=== PATIENT | male | born 1940 | race Caucasian/White ===

== ENCOUNTER 2017-12-26 17:59 | Emergency (ER) | payer MEDICARE, BC, OTHER ==
[~2017-12-26] VITALS: Ht 185.4 cm; Wt 76.2 kg
[~2017-12-26 17:59] MED LIST: AUGMENTIN 875875 MG PO; CALCIUM 500 +1 EAC5 PO; CASODEX 50 MG T50 M1 PO; EC-NAPROSYN375 MG PO; ENTOCORT EC 3 MG3 MG PO; FINASTERIDE5 MG PO; FLOMAX0.4 MG PO; FOLIC ACID1 MG PO; KLOR-CON 1010 MEQ PO; LASIX 20 MG TAB20 MG PO; LOPRESSOR25 PO; NAPROXEN375 M1 PO; PROTONIX40 M1 PO; SULFASALAZINE500 M5 PO; VITAMIN D1000 UNI1 PO
[2017-12-26 18:13] VITALS: BP 164/96
[2017-12-26] MEDS ORDERED: PREDNISONE 20 M20 M1 PO (18:26)
== END 2017-12-26 18:40 | disposition home or self-care (01) ==
LOC: M.ERS 17:59
DX: L25.9 Unspecified contact dermatitis, unspecified cause (principal); E78.00 Pure hypercholesterolemia, unspecified; K21.9 Gastro-esophageal reflux disease without esophagitis

== ENCOUNTER 2019-08-25 13:53 | Inpatient (IN) | payer OTHER ==
[~2019-08-25] VITALS: Ht 185.4 cm; Wt 74.4 kg
--- NOTE | ~2019-08-25 | CON ---
[address] [address] CONSULTATION Name: YUKODAHIANA T Room: [address] IN M.R.#: [id number] Admission: 08/25/19 Attend Phys: Tyesha Treadwell MD Discharge: Date of : 40 Report #: [id number] THIS REPORT FOR: //name// cc: [facility] physician unknown [facility] [address] physician unknown ~ THIS REPORT FOR: //name// CC: JOHN unknown Tyesha Treadwell [facility] DICTATED BY: Hiwot RODAS DATE OF SERVICE: 08/26/2019 Please note at the time of this dictation, the patient was seen and physically examined by myself. REASON FOR CONSULTATION: Constipation, abdominal pain and abnormal CT. HISTORY OF PRESENT ILLNESS: This is a 78-year-old male who presented to the Emergency Room with severe lower abdominal discomfort. He states he was having some rectal pain and not had a bowel movement in greater than 3 days. The patient does have a longstanding history of ulcerative colitis, which he takes sulfasalazine for and he is followed at the [facility]. Apparently, the patient 2 years ago, had a very large polyp that was noted. Part of it was only able to be removed. He had a colon last year. The rest of it was removed and he is to have a repeat colonoscopy on 08/31 regarding this and his colitis. The patient states routinely he does not take anything for his bowels at home. However, since he got here, he had numerous agents in the Emergency Room and has been placed on MiraLax. He states he has been going significantly since he got here to the point this morning last time he went, his bowels are almost liquid and he refused his MiraLax this morning. He states he is feeling much better. His appetite is good and he has no complaints noted at this time. ALLERGIES: No known drug allergies. MEDICATIONS FROM HOME: Protonix, Flomax, Casodex, sulfasalazine, folic acid, vitamin D, and Os-Caleb. PAST MEDICAL HISTORY: History of colon polyps. He had some gastritis back in 2014. BPH, high cholesterol, acid reflux with prostate cancer with metastasis. PAST SURGICAL HISTORY: Right hip replacement. FAMILY HISTORY: [place] [address] CONSULTATION Name: DAHIANA HUNTLEY Room: [address] IN [facility].#: [id number] Admission: 08/25/19 Attend Phys: Tyesha Treadwell MD Discharge: Date of : 40 Report #: [id number] SOCIAL HISTORY: Lives at home with his . Denies any alcohol, tobacco or illegal drug use. REVIEW OF SYSTEMS: Twelve-point review of systems is essentially negative except what is mentioned in the HPI. PHYSICAL EXAMINATION: VITAL SIGNS: Temperature 37.7, pulse 98, respirations are 18, blood pressure 123/74. HEART: Regular rate and rhythm. LUNGS: Diminished, but clear. ABDOMEN: Soft, positive bowel sounds in all 4 quadrants with no masses or tenderness noted. LABORATORY DATA: Hemoglobin is 11.1, white count 6.7, platelets 229. GFR is 59. His LFTs are normal. It is also noted that he has UTI. CT shows some debris in his gallbladder, questionable polyp. He has got a large amount of stool noted diffusely throughout his entire colon, with some thickening in the sigmoid area is noted. IMPRESSION: 1. Constipation., resolved. 2. Abnormal CT, mainly in the sigmoid area. 3. History of ulcerative colitis, cleared back in the 1960s. 4. Personal history of prostate cancer with mets. PLAN: 1. The patient's bowels are moving regularly and are now very loose to watery. 2. Continue Cipro, Flagyl IV for at least a day and then home on oral antibiotics. 3. The patient already has a colonoscopy scheduled with the [place] whom follows [place] on 09/01/2019. 4. No plans for any endoscopy study at this time. The patient is wanting to go home. Thank you for allowing us to participate in this patient's care. Please do not hesitate to call with any questions in regard to this consult. By: [id number] Beck MD /hermes
[~2019-08-25 13:53] MED LIST changes: +PREDNISONE 20 M20 M1 PO
[2019-08-25 14:21] LABS: ABSOLUTE EOSINOPHILS 0.1 thou/uL (0.0-0.7); ABSOLUTE LYMPHOCYTES 1.1 thou/uL (0.8-5.3); ABSOLUTE MONOCYTES 0.4 thou/uL (0.0-1.2); ABSOLUTE NEUTROPHILS 3.7 thou/uL (1.6-8.1); BASOPHILS 0.6 %; EOSINOPHILS 2.2 %; HEMOGLOBIN 11.8 gm/dL (14.0-18.0); MCH 35.5 pg (26.0-34.0); MCHC 34.8 g/dL (28.0-37.0); MONOCYTES 7.6 %; MPV 6.9 fl. (7.2-11.1); NUCLEATED RBCS 0 /100WBC; PLATELET COUNT* 240 thou/uL (150-400); POLYS 68.6 %; RBC 3.33 mil/uL (4.50-6.00); RDW-CV 13.7 % (10.5-14.5); WBC 5.5 thou/uL (4.0-11.0)
[2019-08-25 14:54] LABS: CALCIUM 9.4 mg/dL (8.5-10.1); CREATININE 1.2 mg/dL (0.6-1.3); POTASSIUM 4.3 mmol/L (3.5-5.1)
[2019-08-25 14:59] LABS: ALBUMIN 3.5 g/dL (3.4-5.0); TOTAL BILIRUBIN 0.4 mg/dL (<0.1-1.0); TOTAL PROTEIN 7.2 g/dL (6.4-8.2)
[2019-08-25 18:01] LABS: URINE BILIRUBIN NEGATIVE (Negative); URINE BLOOD TRACE (Negative); URINE CLARITY SL CLOUDY; URINE COLOR YELLOW; URINE GLUCOSE-RANDOM NEGATIVE (Negative); URINE KETONES NEGATIVE (Negative); URINE LEUKOCYTES-REFLEX 1+ (Negative); URINE NITRITE-REFLEX POSITIVE (Negative); URINE PROTEIN 2+ (Negative); URINE SPECIFIC GRAVITY <= 1.005 (1.005-1.030); URINE UROBILINOGEN 0.2 E.U./dl (0.2-1.0)
[2019-08-25 18:02] LABS: SQUAMOUS 0-3 Few /LPF (0-3); URINE RBC 3-10 Few /HPF (0-2); URINE WBC-REFLEX >25 Many /HPF (0-5); WBC CLUMPS Few (None Seen)
[2019-08-25 18:03] LABS: BACTERIA-REFLEX >30 Many /HPF (None Seen); CASTS None Seen /LPF (None Seen); CRYSTALS None Seen /LPF (None Seen)
[2019-08-25 21:52] VITALS: BP 117/50
[2019-08-25 22:00] VITALS: BP 124/61
[2019-08-26 04:33] VITALS: BP 123/74
[2019-08-26 05:04] LABS: HEMATOCRIT 31.9 % (42.0-52.0); HEMOGLOBIN 11.1 gm/dL (14.0-18.0); MCH 35.6 pg (26.0-34.0); MCHC 34.7 g/dL (28.0-37.0); MCV 102.6 fL (80.0-100.0); MPV 7.6 fl. (7.2-11.1); RBC 3.11 mil/uL (4.50-6.00); RDW-CV 14.2 % (10.5-14.5); WBC 6.7 thou/uL (4.0-11.0)
[2019-08-26 05:16] LABS: ALBUMIN 2.9 g/dL (3.4-5.0); CALCIUM 8.4 mg/dL (8.5-10.1); CREATININE 1.2 mg/dL (0.6-1.3); MAGNESIUM 1.9 mg/dL (1.8-2.4); POTASSIUM 4.1 mmol/L (3.5-5.1); TOTAL BILIRUBIN 0.4 mg/dL (<0.1-1.0); TOTAL PROTEIN 6.4 g/dL (6.4-8.2)
[2019-08-26 08:00] VITALS: BP 92/59
--- NOTE | 2019-08-26 11:49 | EKG ---
[place] [address] ELECTROCARDIOGRAM REPORT Name: YUKODAHIANA Warren Room: [address] ADM IN .R.#: [id number] Admission: 08/25/19 Attend Phys: Tyesha Treadwell, Discharge: Date of : 40 Date of Service: 08/25/19 1450 Report #: [id number] THIS REPORT FOR: //name// [facility] ED Test Date: 2019-08-25 Test Time: 14:50:41 Pat Name: DAHIANA HUNTLEY Department: Room: [facility] Gender: M [place]: : 1940 Requested By: Mimi Cortez Order Number: [id number] MD: Heriberto Mercer Measurements Intervals [place] Rate: 73 P: -9 DE: 225 QRS: -3 QRSD: 95 T: 48 QT: 400 QTc: 441 Interpretive Statements Sinus rhythm Prolonged [place] interval Abnormal R-wave progression, early transition Electronically Signed On 08-26-2019 11:48:05 SEXOLOGIST by Heriberto Mercer [email or web address] <ELECTRONICALLY SIGNED> By: Heriberto Mercer MD, [facility] 08/26/19 1148 1450 1450 Heriberto Mercer MD, [facility] /EPI
[2019-08-26 20:30] VITALS: BP 117/75
[2019-08-27 08:20] VITALS: BP 118/68
[2019-08-27] MEDS ORDERED: CIPRO500 M1 PO (09:53)
[2019-08-27] MEDS ORDERED: GAVILAX8.5 GM PO (09:53)
[2019-08-27] MEDS ORDERED: FLAGYL500 M1 PO (09:53)
[2019-08-27 11:00] VITALS: BP 117/75
[2019-08-27 15:40] VITALS: BP 117/75
== END 2019-08-27 15:40 | disposition home or self-care (01) | DRG 177 ==
LOC: M.ERS 13:53 → M.2W 17:46 → M.ORTHSURG 17:46 → M.TBA-ER 17:46 → M.2W 22:00 → M.ORTHSURG 08-26 07:57
PROVIDERS: Physician Assistant; ADMIT Internal Medicine
DX: J15.6 Pneumonia due to other Gram-negative bacteria (principal); K55.039 Acute (reversible) ischemia of large intestine, extent unspecified; A04.9 Bacterial intestinal infection, unspecified; N40.0 Benign prostatic hyperplasia without lower urinary tract symptoms; E78.00 Pure hypercholesterolemia, unspecified; K21.9 Gastro-esophageal reflux disease without esophagitis; Z96.641 Presence of right artificial hip joint; K59.00 Constipation, unspecified; E78.5 Hyperlipidemia, unspecified; Z85.038 Personal history of other malignant neoplasm of large intestine; Z85.46 Personal history of malignant neoplasm of prostate; Z79.899 Other long term (current) drug therapy

== ENCOUNTER 2020-01-21 15:09 | Inpatient (IN) | payer OTHER ==
[~2020-01-21] VITALS: Ht 185.4 cm; Wt 72.6 kg
--- NOTE | ~2020-01-21 | EKG ---
[place] [address] ELECTROCARDIOGRAM REPORT Name: DAHIANA HUNTLEY Room: [address] ADM IN .R.#: [id number] Admission: 01/22/20 Attend Phys: Allen Kerns, Discharge: Date of : 40 Date of Service: 01/23/20 1127 Report #: [id number] THIS REPORT FOR: //name// [facility] Test Date: 2020-01-23 Test Time: 11:27:18 Pat Name: DAHIANA HUNTLEY Department: Room: [address] Gender: M Supervisor Finishing Department: VIKY : 1940 Requested By: Justin Neumann Order Number: [id number] Reading MD: Measurements Intervals [place] Rate: 51 P: 105 [place]: 295 QRS: -13 QRSD: 100 T: 16 QT: 455 QTc: 420 Interpretive Statements Sinus rhythm Atrial premature complex Prolonged [place] interval Abnormal R-wave progression, early transition Inferior infarct, old Artifact in lead(s) I,II,III,aVR,aVL,aVF Compared to ECG 01/21/2020 15:12:18 Atrial premature complex(es) now present Ectopic atrial rhythm no longer present Myocardial infarct finding still present [email or web address] By: 1127 26 Epiphany EpiphanyMD /GRISELDA
[~2020-01-21 15:09] MED LIST changes: +CIPRO500 M1 PO; +FLAGYL500 M1 PO; +GAVILAX8.5 GM PO; -VITAMIN D1000 UNI1 PO; +VITAMIN D350 MC3 PO
[2020-01-21 15:11] VITALS: BP 118/52
[2020-01-21 15:56] LABS: ABSOLUTE LYMPHOCYTES 1.4 thou/uL (0.8-5.3); ABSOLUTE MONOCYTES 0.8 thou/uL (0.0-1.2); ABSOLUTE NEUTROPHILS 5.8 thou/uL (1.6-8.1); BASOPHILS 0.3 %; EOSINOPHILS 0.5 %; HEMATOCRIT 36.1 % (42.0-52.0); HEMOGLOBIN 12.9 gm/dL (14.0-18.0); LYMPHOCYTES 16.9 %; MCH 36.6 pg (26.0-34.0); MCHC 35.8 g/dL (28.0-37.0); MCV 102.3 fL (80.0-100.0); MONOCYTES 10.4 %; MPV 7.1 fl. (7.2-11.1); NUCLEATED RBCS 0 /100WBC; PLATELET COUNT* 161 thou/uL (150-400); POLYS 71.9 %; RBC 3.53 mil/uL (4.50-6.00); RDW-CV 13.5 % (10.5-14.5)
[2020-01-21 16:07] LABS: CALCIUM 8.5 mg/dL (8.5-10.1); CREATININE 1.5 mg/dL (0.6-1.3); POTASSIUM 4.2 mmol/L (3.5-5.1)
[2020-01-21 16:10] LABS: APTT 23.1 Seconds (25.0-31.3); PROTIME 10.5 Seconds (9.20-11.50)
[2020-01-21 16:11] LABS: ALBUMIN 3.8 g/dL (3.4-5.0); TOTAL BILIRUBIN 0.4 mg/dL (<0.1-1.0); TOTAL PROTEIN 7.4 g/dL (6.4-8.2)
--- NOTE | 2020-01-21 16:39 | EKG ---
[place] [address] ELECTROCARDIOGRAM REPORT Name: DAHIANA HUNTLEY Room: [facility].#: [id number] Admission: Attend Phys: Discharge: Date of : 40 Date of Service: 01/21/20 1512 Report #: [id number] THIS REPORT FOR: //name// [facility] ED Test Date: 2020-01-21 Test Time: 15:12:18 Pat Name: DAHIANA HUNTLEY Department: Room: Gender: M Site Lead: : 1940 Requested By: Shamir Peter Order Number: [id number] MD: Heriberto Mercer Measurements Intervals [place] Rate: 71 P: -50 ME: 256 QRS: -18 QRSD: 93 T: 26 QT: 400 QTc: 435 Interpretive Statements Sinus or ectopic atrial rhythm Prolonged [place] interval Abnormal R-wave progression, early transition Inferior infarct, old Compared to ECG 08/25/2019 14:50:41 no change Electronically Signed On 01-21-2020 16:39:51 CDT by Heriberto Mercer [email or web address] <ELECTRONICALLY SIGNED> By: Heriberto Mercer MD, [facility] 01/21/20 1639 1512 1512 Heriberto Mercer MD, [facility] /EPI
[2020-01-21 16:42] LABS: URINE BILIRUBIN NEGATIVE (Negative); URINE BLOOD NEGATIVE (Negative); URINE CLARITY CLOUDY; URINE COLOR YELLOW; URINE GLUCOSE-RANDOM TRACE (Negative); URINE KETONES NEGATIVE (Negative); URINE LEUKOCYTES-REFLEX 1+ (Negative); URINE PROTEIN 1+ (Negative); URINE SPECIFIC GRAVITY 1.025 (1.005-1.030); URINE UROBILINOGEN 0.2 E.U./dl (0.2-1.0)
[2020-01-21 16:45] LABS: URINE NITRITE-REFLEX POSITIVE (Negative)
[2020-01-21 16:52] LABS: BACTERIA-REFLEX 1-9 Few /HPF (None Seen); CASTS None Seen /LPF (None Seen); CRYSTALS None Seen /LPF (None Seen); MUCUS 0-3 Light strn/LPF (None Seen); SQUAMOUS 0-3 Few /LPF (0-3); URINE RBC None Seen /HPF (0-2); URINE WBC-REFLEX >25 Many /HPF (0-5)
[2020-01-21 20:30] VITALS: BP 164/79
[2020-01-21 20:37] VITALS: BP 148/73
[2020-01-21 23:30] VITALS: BP 154/76; BP 175/76
[2020-01-22 04:00] VITALS: BP 141/65
--- NOTE | 2020-01-22 06:48 | NUR ---
PT ARRIVED FROM ED AT 2029. AAOX4, ORIENTED TO ROOM AND CALL LIGHT. TRAFFIC OBSERVER IN PLACE, TRACING SR 1D. HOURLY ROUNDING COMPLETED.PT VOICED NO CONCERNS THIS SHIFT. NPO FOR CARDIOLOGY CONSULT. CALL LIGHT WITHIN REACH.
[2020-01-22] MEDS ORDERED: ELIQUIS5 MG PO ×2 (07:32→13:56)
[2020-01-22] MEDS ORDERED: AMLODIPINE BESY10 MG PO (07:32)
[2020-01-22 08:00] VITALS: BP 135/71
[2020-01-22 11:47] VITALS: BP 139/74
[2020-01-22 12:00] VITALS: BP 139/74; BP 144/85; BP 155/82
[2020-01-22] MEDS ORDERED: NORVASC10 MG PO (13:56)
[2020-01-22 16:34] VITALS: BP 113/73
--- NOTE | 2020-01-22 18:39 | NUR ---
pt. vss, aox4, denies pain, uses urinal in bed. cardiac meds updated. diet advanced, tolerated without difficulty. call light and personal belongings placed within reach. pt. in stable condition, watching tv in bed, at shift change.
[2020-01-22 19:50] VITALS: BP 123/63
[2020-01-23] VITALS: BP 112/60
[2020-01-23 03:40] LABS: HEMATOCRIT 35.5 % (42.0-52.0); HEMOGLOBIN 12.4 gm/dL (14.0-18.0); MCH 35.9 pg (26.0-34.0); MCV 102.6 fL (80.0-100.0); MPV 7.3 fl. (7.2-11.1); RBC 3.46 mil/uL (4.50-6.00); RDW-CV 13.2 % (10.5-14.5); WBC 4.8 thou/uL (4.0-11.0)
[2020-01-23 03:56] LABS: ALBUMIN 3.2 g/dL (3.4-5.0); CALCIUM 8.6 mg/dL (8.5-10.1); CREATININE 1.2 mg/dL (0.6-1.3); POTASSIUM 3.5 mmol/L (3.5-5.1); TOTAL BILIRUBIN 0.5 mg/dL (<0.1-1.0); TOTAL PROTEIN 6.5 g/dL (6.4-8.2)
[2020-01-23 04:00] VITALS: BP 116/58
--- NOTE | 2020-01-23 05:19 | NUR ---
PT CARE ASSUMED AT 1930. SAT MAINTAINED IN RA. ALERT AND ORIENTED X4. DENIES PAIN AND SOB. CALL LIGHT WITHIN REACH AND BED IN LOW POSITION. HOURLY ROUNDING DONE FOR PT SAFETY.
[2020-01-23 08:00] VITALS: BP 135/64
[2020-01-23 11:19] VITALS: BP 126/67
--- NOTE | 2020-01-23 12:55 | EKG ---
[place] [address] ELECTROCARDIOGRAM REPORT Name: DAHIANA HUNTLEY Room: [address] ADM IN .R.#: [id number] Admission: 01/22/20 Attend Phys: Allen Kerns, Discharge: Date of : 40 Date of Service: 01/23/20 1127 Report #: [id number] THIS REPORT FOR: //name// [facility] Test Date: 2020-01-23 Test Time: 11:27:18 Pat Name: DAHIANA HUNTLEY Department: Room: [address] Gender: M Ophthalmologist: VIKY : 1940 Requested By: Justin Neumann Order Number: [id number] Reading MD: Justin Neumann Measurements Intervals [place] Rate: 51 P: 105 [place]: 295 QRS: -13 QRSD: 100 T: 16 QT: 455 QTc: 420 Interpretive Statements Sinus rhythm Atrial premature complex Prolonged [place] interval Abnormal R-wave progression, early transition Inferior infarct, old Artifact in lead(s) I,II,III,aVR,aVL,aVF Compared to ECG 01/21/2020 15:12:18 Atrial premature complex(es) now present Ectopic atrial rhythm no longer present Myocardial infarct finding still present Electronically Signed On 01-23-2020 12:55:36 CDT by Justin Neumann [email or web address] <ELECTRONICALLY SIGNED> By: Justin Neumann MD, FAC 01/23/20 1255 1127 1127 Justin Neumann MD, [facility] /EPI
[2020-01-23 16:21] VITALS: BP 151/69
--- NOTE | 2020-01-23 18:48 | NUR ---
PT. AOX4, DENIES PAIN, UAL TO BATHROOM, TOLERATED WELL. CALL LIGHT AND PERSNAL BELONGINGS PLACED WITHIN REACH. PT IN BED, WATCHING TV, IN STABLE CONDITION, AT SHIFT CHANGE.
[2020-01-23 19:50] VITALS: BP 129/50
[2020-01-24] VITALS: BP 120/68
[2020-01-24 04:00] VITALS: BP 124/72
[2020-01-24 08:00] VITALS: BP 127/75
[2020-01-24] MEDS ORDERED: CEFUROXIME250 MG PO (08:07)
[2020-01-24] MEDS ORDERED: SORINE 80 MG TA80 M1 PO (08:07)
[2020-01-24 11:53] VITALS: BP 127/75
[2020-01-24 12:36] VITALS: BP 145/62
--- NOTE | 2020-01-24 15:21 | EKG ---
[place] [address] ELECTROCARDIOGRAM REPORT Name: LEEANN HUNTLEYNIE Warren Room: [address] DIS IN M.R.#: [id number] Admission: 01/22/20 Attend Phys: Allen Kerns, Discharge: 01/24/20 Date of : 40 Date of Service: 01/23/20 1036 Report #: [id number] THIS REPORT FOR: //name// [facility] Test Date: 2020-01-23 Test Time: 10:36:15 Pat Name: DAHIANA HUNTLEY Department: Room: [address] Gender: M Fnps: LUC : 1940 Requested By: Allen Kerns Order Number: [id number] Myla MD: Heriberto Mercer Measurements Intervals [place] Rate: 57 P: 26 [place]: 304 QRS: -15 QRSD: 94 T: 26 QT: 430 QTc: 419 Interpretive Statements Sinus bradycardia Prolonged [place] interval Inferior infarct, old Baseline wander in lead(s) V6 Compared to ECG 01/21/2020 15:12:18 rate has decreased Myocardial infarct finding still present Electronically Signed On 01-24-2020 15:21:14 CDT by Heriberto Mercer [email or web address] <ELECTRONICALLY SIGNED> By: Heriberto Mercer MD, FAC 01/24/20 1521 1036 1036 Heriberto Mercer MD, [facility] /EPI
--- NOTE | 2020-01-24 16:36 | CON ---
[address] [address] CONSULTATION Name: YUKODAHIANA T Room: [address] IN M.R.#: [id number] Admission: 01/22/20 Attend Phys: Allen Kerns MD Discharge: 01/24/20 Date of : 40 Report #: [id number] THIS REPORT FOR: //name// cc: Radha Cheung MD, Geetha S. MD ~ THIS REPORT FOR: //name// CC: Allen Cheung DATE OF SERVICE: 01/22/2020 INDICATION: Syncope and paroxysmal atrial fibrillation. HISTORY OF PRESENT ILLNESS: The patient is a 79-year-old gentleman, who had an episode of syncope yesterday and was brought to the hospital. He was found to be quite hypotensive. EMS reported a blood pressure of 60/40. The patient was given fluids and transported to the hospital. He is now stable. He reports a similar episode 2 months ago. He does take amlodipine 10 mg daily. He is not on any other antihypertensives. Current blood pressure is 135/71. He denied any palpitations or other symptoms prior to syncope other than feeling fatigued. He has paroxysmal atrial fibrillation by history. On telemetry, I see short runs that appear to be atrial fibrillation. For the most part, he is maintaining sinus rhythm. He denies any shortness of breath or chest pain. He is without other cardiac complaint at this time. PAST MEDICAL HISTORY: 1. Paroxysmal atrial fibrillation. 2. Hypertension. 3. Metastatic prostate cancer. 4. History of ulcerative colitis. PAST SURGICAL HISTORY: Right hip replacement in June of this year. FAMILY HISTORY: The patient's sister of a stroke. There was no other history of premature atherosclerotic coronary artery disease. SOCIAL HISTORY: The patient is . He does not smoke. He does not drink alcohol. ALLERGIES: None documented. HOME MEDICATIONS: Amlodipine 10 mg daily, Eliquis 5 mg b.i.d., Casodex [address] [place] [address] CONSULTATION Name: DAHIANA HUNTLEY Room: [address]#: [id number] Admission: 01/22/20 Attend Phys: Allen Kerns MD Discharge: 01/24/20 Date of : 40 Report #: [id number], Os-Caleb 1 tablet daily, Protonix 40 mg daily, sulfasalazine 1000 mg q.i.d., Flomax 0.4 mg daily. REVIEW OF SYSTEMS: A 14-point review of systems is positive for pneumonia remotely, dyspnea on exertion, syncope, history of blood in his stool in 2014, pain and blood in the urine in 2014, history of anemia, history of prostate cancer. He wears glasses without acute visual change. He wears dentures. PHYSICAL EXAMINATION: VITAL SIGNS: Stable. Blood pressure 135/71, pulse 94 and regular. GENERAL: This is a pleasant gentleman, who is in no distress. Mood and affect appropriate. HEENT: Extraocular muscles intact. Mucous membranes are moist. NECK: Shows no jugular venous distention. There are no carotid bruits. CHEST: Reveals clear lung flower without wheezes or rales. CARDIAC: Reveals a regular rhythm with normal S1 and S2. I do not appreciate gallop or murmur. ABDOMEN: Reveals normal bowel sounds. Abdomen is soft, nontender. EXTREMITIES: Shows no edema. SKIN: Warm and dry. IMAGING: A 12-lead EKG shows sinus rhythm without acute ST or T-wave abnormality. IMPRESSION AND RECOMMENDATIONS: 1. Syncope, likely due to an episode of hypotension. At this point in time, I am discontinuing amlodipine. We will follow blood pressure and adjust meds as needed. I believe this was due to baseline hypertension secondary to medication. 2. Paroxysmal atrial fibrillation. At this point, I would recommend antiarrhythmic therapy with sotalol 80 mg twice daily. Continue Eliquis 5 mg b.i.d. We will obtain EKG tomorrow and follow QT intervals. Plan 2-day loading dose in hospital. 3. Chronic anticoagulation. The patient appears to be tolerating this relatively well without any recent bleeding problems. We will continue Eliquis 5 mg b.i.d. <ELECTRONICALLY SIGNED> By: Justin Neumann MD, FACC 01/24/20 1636 1132 1142Van Ness Campusshivam Neumann MD, FACC /nt
== END 2020-01-24 15:18 | disposition home or self-care (01) | DRG 312 ==
LOC: M.ERS 15:09 → M.TBA-ER 16:29 → M.2W 22:43
PROVIDERS: Emergency Medicine Emergency Medical Services; Internal Medicine; ADMIT Internal Medicine; ATTEND Internal Medicine
DX: I95.2 Hypotension due to drugs (principal); N17.0 Acute kidney failure with tubular necrosis; N39.0 Urinary tract infection, site not specified; K21.9 Gastro-esophageal reflux disease without esophagitis; Z96.641 Presence of right artificial hip joint; E78.00 Pure hypercholesterolemia, unspecified; N40.0 Benign prostatic hyperplasia without lower urinary tract symptoms; E78.5 Hyperlipidemia, unspecified; I48.0 Paroxysmal atrial fibrillation; Z20.828 Contact with and (suspected) exposure to other viral communicable diseases; Z85.46 Personal history of malignant neoplasm of prostate; Z79.01 Long term (current) use of anticoagulants; Z79.899 Other long term (current) drug therapy